=== PATIENT | male | born 1950 | race Caucasian/White ===

== ENCOUNTER 2018-05-23 19:46 | Emergency (ER) | payer MEDICARE, BC, SELFPAY ==
[2018-05-23 19:55] VITALS: BP 135/79; PULSE 76; RESP 16; TEMP 36.8; O2SAT 98; BMI 40.1
--- NOTE | 2018-05-23 20:01 | ED_ITS ---
HPI - Extremity Problem <Heaven Joyner PA-C - Last Filed: 05/23/18 23:48> General Chief complaint: Extremity Problem,Nontraumatic Stated complaint: LEFT LEG/ANKLE SWELLING Time Seen by Provider: 05/23/18 20:01 Source: patient and family Mode of arrival: ambulatory Limitations: no limitations History of Present Illness HPI Narrative: This 68-year-old gentleman comes to ED due to swelling, bruising , and some pain in the left leg, mainly in the shepherd area. He is on Xarelto for previous history of pulmonary embolus. He states that about a week ago, he was walking and felt a pop sensation in the shepherd area. Since then, he has had redness over the lower shepherd, some increased swelling, and also bruising near the knee, shepherd, and foot. He is not having any difficulty moving his foot or ankle and is able to walk. He is not having any new fever. He has not had any wounds, no fall or specific injury. He denies any chest pain or dyspnea. No pain in the calf. The left leg is typically larger than the right due to previous crush injuries in both legs and some atrophy of the right side. The redness has not changed in the last week. He has been ambulating normally and doing his usual activities as they are in the process of moving, but he states that the leg is quite sore especially at night. Related Data Home Medications Medication Instructions Recorded Confirmed rivaroxaban 20 mg PO DAILY 05/23/18 05/23/18 Allergies Allergy/AdvReac Type Severity Reaction Status Date / Time No Known Drug Allergies Allergy Verified 05/23/18 21:43 Review of Systems <Heaven Joyner PA-C - Last Filed: 05/23/18 23:48> Review of Systems All systems reviewed & are unremarkable except as noted in HPI and below PFSH <Heaven Joyner PA-C - Last Filed: 05/23/18 23:48> Comment: Denies tobacco use Exam <Heaven Joyner PA-C - Last Filed: 05/23/18 23:48> Narrative Exam Narrative: GENERAL APPEARANCE: Patient sitting comfortably, in no distress. NECK/THYROID: Neck supple, no JVD. LUNGS: Clear to auscultation bilaterally. HEART: Regular rate and rhythm without murmur, normal S1, S2, no S3 or S4. ABDOMEN: Soft, NT, ND, + BS x 4 quadrants EXTREMITIES: No cyanosis, no calf tenderness. Moderate brawny edema left shepherd distal. Pedal pulses intact NEUROLOGIC: Alert and oriented, normal speech, gait and coordination. DERMATOLOGIC: Purple ecchymoses over the proximal left dorsal toes, patchy ecchymoses over the left shepherd and a small amount just inferior to the left knee medial surface. There is also an area of erythema that is slightly warm over the distal shepherd on the lateral 2/3. Mildly tender to palpation throughout these areas MUSCULOSKELETAL: Full range of motion of the left knee and ankle without tenderness Initial Vital Signs Initial Vital Signs: Vital Signs Temperature 98.2 F 05/23/18 19:55 Pulse Rate 76 05/23/18 19:55 Respiratory Rate 16 05/23/18 19:55 Blood Pressure 135/79 H 05/23/18 19:55 Pulse Oximetry 98 05/23/18 19:55 <Selma Allison DO - Last Filed: 05/24/18 20:42> Initial Vital Signs Initial Vital Signs: Vital Signs Temperature 98.2 F 05/23/18 19:55 Pulse Rate 76 05/23/18 19:55 Respiratory Rate 16 05/23/18 19:55 Blood Pressure 135/79 H 05/23/18 19:55 Pulse Oximetry 98 05/23/18 19:55 Course <Heaven Joyner PA-C - Last Filed: 05/23/18 23:48> Orders Ordered: Discontinued Medications Hydrocodone Bitart/Acetaminophen (Vicodin Prepack) 1 bottle MISC SEEINSTR ONE Stop: 05/23/18 21:27 Last Admin: 05/23/18 21:43 Dose: 1 bottle Vital Signs - 8 hr 05/23/18 19:55 05/23/18 21:50 Temperature 98.2 F 98.3 F Pulse Rate 76 72 Respiratory Rate 16 16 Blood Pressure 135/79 H 130/75 H Pulse Oximetry 98 98 <DO Vinnie Alicia Last Filed: 05/24/18 20:42> Orders Ordered: Discontinued Medications Hydrocodone Bitart/Acetaminophen (Vicodin Prepack) 1 bottle MISC SEEINSTR ONE Stop: 05/23/18 21:27 Last Admin: 05/23/18 21:43 Dose: 1 bottle Vital Signs - 8 hr 05/23/18 19:55 05/23/18 21:50 Temperature 98.2 F 98.3 F Pulse Rate 76 72 Respiratory Rate 16 16 Blood Pressure 135/79 H 130/75 H Pulse Oximetry 98 98 MDM - Extremity (Nontraumatic) <Heaven Joyner PA-C - Last Filed: 05/23/18 23:48> Imaging Data extremity us: Radiologist's impression: [address] [address] Ultrasound Report Signed Patient: SEUN ZELAYA MR#: [id number] : 1950 Acct:[id number] Age/Sex: 68 / M Date of Service: 05/23/18 Loc: ED Accession Number: [id number] Procedure: US extremity nonvasc lower lt Ordering Provider: Heaven Joyner P.A-C PROCEDURE: US EXTREMITY NONVASC LOWER LT INDICATIONS: Swelling to anterior distal left calf per carton forming machine operator. Patient is reportedly on anticoagulants. Concern for hematoma per ordering provider. TECHNIQUE: Real-time scanning was performed of the anterior distal left calf, with image documentation. COMPARISON: [facility], [place], VEINS EXTREMITY DUPLEX,BIL, 03/04/2015 , 7:53. FINDINGS: There is 11.3 x 3.9 x 1.5 cm subcutaneous fluid collection with an irregular margin in the imaged area of concern. There is increased echogenicity of the surrounding tissues. There is no vascularity on Doppler ultrasound within or surrounding this fluid collection, lowering the suspicion for abscess. IMPRESSION: 11.3 x 3.9 x 1.5 cm subcutaneous fluid collection in the area of concern (the anterior distal left calf per carton forming machine operator), likely representing an evolving hematoma or seroma. These results were communicated to the ordering provider by the field account manager at approximately 2050 hrs. on 05/23/2018. Dictated by: Jacky Wolf M.D. on 05/23/2018 at 22:35 Approved by: Jacky Wolf M.D. on 05/23/2018 at 22:43 Discharge Plan Departure Patient Disposition: Home, Self-Care Clinical Impression: Hematoma of leg Discharge Date/Time: 05/23/18 21:50 Interventions: ED Discharge Assessment Last Done: 05/23/18 21:50 Instructions: DI for Hematoma (Bruise) Activity Restrictions/Additional Instructions: Your ultrasound shows a hematoma, which is caused from bleeding underneath the skin in soft tissues such as muscle. Since you felt a pop in that area while you are walking about the time this started, I suspect that is the source. Usually, these resolve on their own by reabsorbing, but do take time, a month or more. There is not any active bleeding there now. We will call you if the radiologist's report shows any other findings. We have applied a compresion wrap to help with pain and comfort. We have given you a few pain pills to take at night if you need them. You should return as we talked about if you have any new symptoms such as acute increase in pain or swelling, new redness or fever. Otherwise, you should follow-up with a primary care provider at your new location as you may need further referral if this is not getting better Prescriptions: No Action rivaroxaban 20 mg Tablet 20 mg PO DAILY RF: 0 Referrals: Collette Richardson, CARL-C [Non-Staff] - <Selma Allison DO - Last Filed: 05/24/18 20:42> Cosign ED Attending Cosfayeature Attestation: I was immediately available in the department for consultation. Documentation has been reviewed. I agree with assessment and plan.
--- NOTE | 2018-05-23 20:47 | DI.US.S_ITS ---
PROCEDURE: US EXTREMITY NONVASC LOWER LT INDICATIONS: Swelling to anterior distal left calf per arts therapist. Patient is reportedly on anticoagulants. Concern for hematoma per ordering provider. TECHNIQUE: Real-time scanning was performed of the anterior distal left calf, with image documentation. COMPARISON: [facility], [place], VEINS EXTREMITY DUPLEX,BILAT, 03/04/2015, 7:53. FINDINGS: There is 11.3 x 3.9 x 1.5 cm subcutaneous fluid collection with an irregular margin in the imaged area of concern. There is increased echogenicity of the surrounding tissues. There is no vascularity on Doppler ultrasound within or surrounding this fluid collection, lowering the suspicion for abscess. IMPRESSION: 11.3 x 3.9 x 1.5 cm subcutaneous fluid collection in the area of concern (the anterior distal left calf per arts therapist), likely representing an evolving hematoma or seroma. These results were communicated to the ordering provider by the steam shovel engineer at approximately 2050 hrs. on 05/23/2018. Dictated by: Jacky Wolf M.D. on 05/23/2018 at 22:35 Approved by: Jacky Wolf M.D. on 05/23/2018 at 22:43
[2018-05-23] MEDS: HYDROCODONE/ACET 5/325 PREPACK 1 BOTTLE MISC (21:43)
[2018-05-23 21:50] VITALS: BP 130/75; PULSE 72; RESP 16; TEMP 36.8; O2SAT 98
== END 2018-05-23 21:50 | disposition home or self-care (01) ==
PROVIDERS: Emergency Provider Internal Medicine
DX: S80.12XA Contusion of left lower leg, initial encounter (principal); Y93.01 Activity, walking, marching and hiking
CPT/HCPCS: 76882; 99282; 99284